=== PATIENT | male | born 1940 | race Caucasian/White ===

== ENCOUNTER 2017-03-15 10:35 | Emergency (ER) | payer OTHER ==
[~2017-03-15] VITALS: Wt 70.0 kg
[~2017-03-15 10:35] MED LIST: BEN25 PO; LANS15CA PO
[2017-03-15 11:31] LABS: URINE BLOOD (Dip) POC 1+ (NEGATIVE)
--- NOTE | 2017-03-15 11:40 | RADRPT ---
PROCEDURE: XR Chest. CLINICAL INDICATION: Chest pain. TECHNIQUE: Single frontal view. COMPARISON: None. FINDINGS: The lungs are clear. There is eventration of the left hemidiaphragm. The heart size is normal. There is no pleural effusion. There is no pneumothorax. IMPRESSION: 1. Eventration of the left hemidiaphragm. 2. Otherwise normal chest radiograph. RPTAT: QQ .Benoit Reid MD, MD Date Time Electronically viewed and signed by .Benoit Reid MD, MD on 03/15/2017 11:40 .R/
[2017-03-15] MEDS ORDERED: ACET500C5 PO (12:36)
--- NOTE | 2017-03-15 12:39 | ERD ---
ER Documentation Chief Complaint Date/Time DATE: 03/15/17 TIME: 12:36 Chief Complaint BACK PAIN X 4 DAYS HPI This 68-year-old male complains of some right upper back pain for last 4 days. History significant for left upper back pain last week associated with cough. The cough resolved and the pain on the left also resolved. The pain is all now on his right side. He denies any history of trauma, urinary complaints. He has a history of some blood in his urine he states that he has been told that his normal by his primary doctor and by report a specialist. He denies any fever or sustained pain as it is worse with movement and deep breathing. Denies any anterior chest pain. ROS All systems reviewed and are negative except as per history of present illness. Medications Home Meds Active Scripts Acetaminophen* (Tylophen*) 500 Mg Capsule, 1 CAP PO Q6H Y for PAIN AND OR ELEVATED TEMP, #15 CAP Prov:JONATAN BAHENA MD 03/15/17 Diphenhydramine Hcl* (Benadryl*) 25 Mg Cap, 25 MG PO Q6, #20 CAP Prov:JONATAN BAHENA MD 03/25/16 Reported Medications Lansoprazole* (Prevacid* 24HR) 15 Mg Capsule.dr, 15 MG PO DAILY, CAP 03/25/16 Allergies Allergies: Coded Allergies: No Known Allergy (Unverified , 03/25/16) PMhx/Soc History of Surgery: Yes (prostate sx) Anesthesia Reaction: No Hx Neurological Disorder: No Hx Respiratory Disorders: No Hx Cardiac Disorders: No Hx Psychiatric Problems: No Hx Miscellaneous Medical Probl: Yes (gastritis) Hx Alcohol Use: No Hx Substance Use: No Hx Tobacco Use: No Physical Exam Vitals Vital Signs Date Time Temp Pulse Resp B/P Pulse Ox O2 Delivery O2 Flow Rate FiO2 03/15/17 10:38 98.0 78 18 138/78 99 Physical Exam Const: [] Alert, not ill-appearing. Pleasant. Head: Atraumatic Eyes: Normal Conjunctiva ENT: Normal External Ears, Nose and Mouth. Neck: Full range of motion..~ No meningismus. Resp: Clear to auscultation bilaterally. Minimal pain approximately the right T10 area. No gross CVA tenderness. Cardio: Regular rate and rhythm, no murmurs Abd: Soft, non tender, non distended. Normal bowel sounds Skin: No petechiae or rashes Back: No midline or flank tenderness Ext: No cyanosis, or edema Neur: Awake and alert Psych: Normal Mood and Affect Results 24 hrs Laboratory Tests Test 03/15/17 11:36 Bedside Urine pH (LAB) 5.5 Bedside Urine Protein (LAB) Negative Bedside Urine Glucose (UA) Negative Bedside Urine Ketones (LAB) Negative Bedside Urine Blood 1+ Bedside Urine Nitrite (LAB) Negative Bedside Urine Leukocyte Esterase (L Negative Procedures/MDM Chest X-ray 1V Interpreted by me: Soft Tissue: No acute abnormalities Bones: No acute abnormalities Mediastinum/Cardiac Silhouette/Lungs: [No acute abnormalities]. Impression- normal 1 view chest x-ray Urine shows 1+ hemoglobin. Results were discussed with patient. Patient is satisfied that his x-rays normal. Patient was advised of the hemoglobin in urine and CT abdomen pelvis was discussed. Patient states he has had this before and has had negative workup of his kidneys and urinary tract. Patient shows no signs or symptoms to suggest serious illness currently. Recommending follow-up and repeat urine with primary doctor and consider further evaluation treatment as an outpatient. Patient shows no signs of pneumonia, hemothorax, pneumothorax, signs or symptoms to suggest pulmonary embolism or acute abdomen, septic stone, aortic disease, additional emergent causes of presenting complaints. Patient should however recheck for new or worsening symptoms or primary care doctor. Departure Diagnosis: Primary Impression: Back pain Back pain location: thoracic back pain Chronicity: acute Back pain laterality: right Qualified Code: M54.6 - Acute right-sided thoracic back pain Condition: Stable Patient Instructions: Flank Pain, Uncertain Cause Additional Instructions: X RAY normal hoy. JOHNNIE POQUITO MARIA M EN ORINA . Cheque otro vez con aguilar doctor primario en el proximo sorensen or regresa para mas o nueva simptomas.CHEQUE ORINA OTOR VEZ CON AGUILAR DOCTOR PROXIMO SEMANA. JONATAN BAHENA MD Mar 15, 2017 12:38
== END 2017-03-15 13:01 | disposition home or self-care (01) ==
LOC: FTE 10:35
DX: M54.6 Pain in thoracic spine (principal)
CPT/HCPCS: 71010; 81003; Z7502

== ENCOUNTER 2017-06-04 12:48 | Emergency (ER) | END 2017-06-04 13:40 | disposition home or self-care (01) | DX: M79.602 Pain in left arm (principal) | CPT/HCPCS: 93005; Z7502 ==